=== PATIENT | male | born 1965 | race Two or more races ===

== ENCOUNTER 2024-10-07 19:13 | Inpatient (IN) | payer MEDICAID ==
[~2024-10-07] VITALS: Ht 170.2 cm; Wt 74.0 kg
[~2024-10-07 19:13] MED LIST: HYDR25TA4 PO; LEVO500T31 PO; LOSA-535 PO
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
[2024-10-07 20:31] LABS: Basophils # (auto) 0 10 ^3/uL (0-0.2); Basophils % (auto) 0.3 % (0.0-2.0); Eosinophils # (auto) 0 10 ^3/uL (0-0.8); Eosinophils % (auto) 0.1 % (0.0-7.0); Hematocrit 43.6 % (41.0-53.0); Hemoglobin 14.8 g/dL (13.5-17.5); Lymphocytes # (auto) 0.6 10 ^3/uL (0.4-5.4); Lymphocytes % (auto) 5.6 % (10.0-50.0); Mean Corpuscular Hemoglobin 31.3 pg (28.0-32.0); Mean Corpuscular Volume 92.3 fL (80.0-100.0); Monocytes # (auto) 0.4 10 ^3/uL (0-1.3); Monocytes % (auto) 3.9 % (0.0-12.0); Neutrophils # (auto) 9.5 10 ^3/uL (1.6-8.6); Neutrophils % (auto) 90.1 % (37.0-80.0); Nucleated Red Blood Cells % 0.1 %; Platelet Count (auto) 239 10^3/uL (140-450); Red Blood Cells 4.73 10^6/uL (4.5-5.90); Red Cell Distribution Width 13.9 % (11.8-14.3); White Blood Cell 10.5 10^3/uL (4.4-10.8)
[2024-10-07 20:51] LABS: Alanine Aminotransferase 27 U/L (7-40); Alkaline Phosphatase 90 U/L (46-116); Anion Gap 10 (5-15); Aspartate Aminotransferase 38 U/L (13-40); BUN/Creatinine Ratio 19.5 (10.0-20.0); Bilirubin, Total 0.7 mg/dL (0.2-1.0); Blood Urea Nitrogen 16 mg/dL (9-23); Calcium 10.1 mg/dL (8.7-10.4); Carbon Dioxide 23 mmol/L (20-31); Chloride 106 mmol/L (98-107); Glucose 105 mg/dL (74-106); Potassium 3.7 mmol/L (3.5-5.1); Sodium 139 mmol/L (136-145); Total Protein 7.8 g/dL (5.7-8.2)
[2024-10-07 21:42] LABS: Albumin 5.2 g/dL (3.2-4.8); Creatine Kinase IFCC 630 U/L (46-171)
--- NOTE | 2024-10-07 22:41 | DVH ---
CLINICAL INDICATION: fall injury TECHNIQUE: 3 radiographic views of the left shoulder were obtained. Comparison: None FINDINGS/IMPRESSION: There is deformity to the left humeral head may be chronic. Correlate with prior studies or CT of the shoulder. The visualized joint space is well maintained. The alignment is anatomical. There is no radiopaque foreign body.
--- NOTE | 2024-10-07 23:44 | DVH ---
INDICATION: pain fall COMPARISON: None TECHNIQUE: CT of the left shoulder was performed without contrast. Volume transverse images were obta ined and reconstructed in multiple planes using bone and soft tissue algorithms. CONTRAST: None Radiation Dose Information: CTDI volume is 28 mGy. Dose-length product is 832 mGy*cm FINDINGS: Mildly displaced and comminuted acute traumatic fracture of the left humeral head. 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 No evidence of traumatic dislocation. The soft tissues are normal. The imaged portions of the mediastinum and left hemithorax are normal. IMPRESSION: 1. Mildly displaced and comminuted acute traumatic fracture of the left humeral head. 2. 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
[2024-10-08] MEDS: fentaNYL CITRATE 100 MCG/2 ML VL IV ONE (00:15)
[2024-10-08] MEDS: HYDROcodone-ACET 5/325MG TAB PO ONE (02:03)
[2024-10-08 03:34] VITALS: PULSE 63; RESP 17; O2SAT 96
[2024-10-08] MEDS: MORPHINE SULFATE 4 MG/ML SYR/VIAL IV ONE ×2 (04:21→08:41)
[2024-10-08] MEDS: ONDANSETRON HCL 4 MG/2 ML VIAL IV ONE ×2 (04:21→08:41)
[2024-10-08 08:00] VITALS: PULSE 62; RESP 11; O2SAT 94
[2024-10-08] MEDS ORDERED: ACETAMINOPHEN 325 MG TAB PO PRN (10:00)
[2024-10-08] MEDS: ENOXAPARIN SOD 30 MG/0.3 ML SYRINGE SC SCH (10:00)
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
[2024-10-08 10:52] LABS: Erythrocyte Sedimentation Rate 12 mm/hr (0-20)
[2024-10-08] MEDS: LOSARTAN POTASSIUM 25 MG TAB PO SCH (11:09)
[2024-10-08] MEDS: LOSARTAN POTASSIUM 50 MG TAB PO SCH (11:09)
[2024-10-08] MEDS: SODIUM CHLORIDE 0.9% 1,000 ML IV SCH (11:10)
[2024-10-08] MEDS: hydroCHLOROthiazide 25 MG TAB PO SCH (11:10)
[2024-10-08] MEDS: MORPHINE SULFATE INJ 2 MG/ml SYRG IV PRN (11:11)
[2024-10-08] MEDS: hydrALAZINE HCL 20 MG/ML VL IV ONE (12:01)
[2024-10-08] MEDS: HYDROcodone-ACET 5/325MG TAB PO PRN (12:43)
[2024-10-08 17:08] LABS: Urine Bacteria None Seen /hpf (None Seen)
[2024-10-08 17:22] LABS: Urine Blood Negative /uL (Negative); Urine Clarity Clear (Clear); Urine Mucus FEW (None Seen); Urine Protein, UAD Negative (Negative); Urine Specific Gravity 1.019 (1.001-1.035); Urine Squamous Epithelial Cell FEW /hpf (<5); Urine Urobilinogen Normal (Negative); Urine WBC 4 /HPF (0-3)
[2024-10-08 17:23] LABS: Urine Color STRAW (Yellow)
[2024-10-08 17:29] LABS: Amphetamine Screen, Urine Neg (NEGATIVE); Barbiturate Scree,Urine Neg (NEGATIVE); Benzodiazephine Screen, Urine Neg (NEGATIVE); Cannabinoid Screen, Urine Pos (NEGATIVE); Cocaine Screen, Urine Neg (NEGATIVE); Opiate Scree,Urine Pos (NEGATIVE); Phencyclidine Screen, Urine Neg (NEGATIVE)
[2024-10-08] MEDS: ONDANSETRON HCL 4 MG/2 ML VIAL IV PRN (17:52)
[2024-10-08 18:48] VITALS: BP 160/71; PULSE 65; PULSE 71; RESP 18; TEMP 98.3; O2SAT 99
[2024-10-08 20:00] VITALS: PULSE 63; RESP 17; O2SAT 98
[2024-10-08 21:00] VITALS: BP 135/78; PULSE 63; RESP 17; TEMP 98.1; O2SAT 98
[2024-10-08] MEDS ORDERED: IBUP200C3 PO (21:00)
[2024-10-09] VITALS (7 sets, daily range): BP systolic 140–164; BP diastolic 73–88; PULSE 57–73; RESP 16–20; TEMP 98.1–99.3; O2SAT 95–99
[2024-10-09 06:25] LABS: Basophils # (auto) 0 10 ^3/uL (0-0.2); Basophils % (auto) 0.3 % (0.0-2.0); Eosinophils # (auto) 0 10 ^3/uL (0-0.8); Eosinophils % (auto) 0.3 % (0.0-7.0); Hematocrit 40.1 % (41.0-53.0); Hemoglobin 13.8 g/dL (13.5-17.5); Lymphocytes # (auto) 0.9 10 ^3/uL (0.4-5.4); Lymphocytes % (auto) 16.7 % (10.0-50.0); Mean Corpuscular Hemoglobin 31.9 pg (28.0-32.0); Mean Corpuscular Hgb Conc. 34.4 g/dL (32.0-36.0); Mean Corpuscular Volume 92.7 fL (80.0-100.0); Monocytes # (auto) 0.4 10 ^3/uL (0-1.3); Neutrophils % (auto) 75.7 % (37.0-80.0); Nucleated Red Blood Cells % 0.2 %; Platelet Count (auto) 189 10^3/uL (140-450); Red Blood Cells 4.32 10^6/uL (4.5-5.90); Red Cell Distribution Width 13.5 % (11.8-14.3); White Blood Cell 5.3 10^3/uL (4.4-10.8)
[2024-10-09 06:39] LABS: Alanine Aminotransferase 24 U/L (7-40); Albumin 4.3 g/dL (3.2-4.8); Alkaline Phosphatase 75 U/L (46-116); Anion Gap 11 (5-15); Aspartate Aminotransferase 39 U/L (13-40); Calcium 9.2 mg/dL (8.7-10.4); Carbon Dioxide 23 mmol/L (20-31); Chloride 106 mmol/L (98-107); Glucose 92 mg/dL (74-106); Sodium 140 mmol/L (136-145); Total Protein 6.5 g/dL (5.7-8.2)
[2024-10-09 06:40] LABS: Bilirubin, Total 0.9 mg/dL (0.2-1.0); Blood Urea Nitrogen 6 mg/dL (9-23); Potassium 3.4 mmol/L (3.5-5.1)
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
[2024-10-10] MEDS ORDERED: cloNIDine HCL 0.1 MG TAB PO ONE (00:45)
[2024-10-10 01:00] VITALS: BP 162/84; PULSE 62; RESP 16; TEMP 98; O2SAT 96
[2024-10-10 05:00] VITALS: BP 157/95; PULSE 63; RESP 16; TEMP 97.9; O2SAT 98
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
[2024-10-10] MEDS ORDERED: HYDR-4902 PO (10:25)
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
[2024-10-10 11:31] VITALS: BP 149/88; PULSE 68; RESP 16
== END 2024-10-10 14:00 | disposition home or self-care (01) | DRG 342 ==
LOC: EDBD 19:13 → ER 19:13 → EDUNIT# 19:13 → OVERFLOW 10-08 09:49 → EAST 10-08 18:42
PROVIDERS: ADMIT Family Medicine; ATTEND Family Medicine
DX: S42.352A Displaced comminuted fracture of shaft of humerus, left arm, initial encounter for closed fracture (principal); I10 Essential (primary) hypertension; I25.2 Old myocardial infarction; M19.012 Primary osteoarthritis, left shoulder; Z93.6 Other artificial openings of urinary tract status; Y92.89 Other specified places as the place of occurrence of the external cause; Y99.8 Other external cause status; V19.9XXA Pedal cyclist (driver) (passenger) injured in unspecified traffic accident, initial encounter; Y93.55 Activity, bike riding; Z82.49 Family history of ischemic heart disease and other diseases of the circulatory system; Z83.3 Family history of diabetes mellitus; Z79.899 Other long term (current) drug therapy
CPT/HCPCS: 36415; 73030; 73200; 80053; 80307; 81001; 82550; 83605; 85025; 85652; 86141; 96374; 96375; 96376; 99291; G0378; J2405